=== PATIENT | female | born 1990 | race Hispanic/Latino ===

== ENCOUNTER 2021-11-07 19:32 | Emergency (ER) | payer OTHER, BC ==
[2021-11-07] MEDS ORDERED: Ibuprofen 200 MG TAB ONE (21:26)
== END 2021-11-07 22:06 | disposition home or self-care (01) ==
LOC: ERS 19:32
DX: S29.012A Strain of muscle and tendon of back wall of thorax, initial encounter (principal); M62.830 Muscle spasm of back; V59.9XXA Occupant (driver) (passenger) of pick-up truck or van injured in unspecified traffic accident, initial encounter; Z79.899 Other long term (current) drug therapy
CPT/HCPCS: 72072